=== PATIENT | female | born 1995 | race Hispanic/Latino ===

== ENCOUNTER 2022-08-03 10:31 | Emergency (ER) | payer OTHER ==
[~2022-08-03] VITALS: Ht 167.6 cm; Wt 72.5 kg
[2022-08-03 12:19] VITALS: BP 141/78
== END 2022-08-03 12:28 | disposition home or self-care (01) ==
LOC: ED 10:31
DX: S92.354A Nondisplaced fracture of fifth metatarsal bone, right foot, initial encounter for closed fracture (principal); W18.49XA Other slipping, tripping and stumbling without falling, initial encounter; Y92.481 Parking lot as the place of occurrence of the external cause

== ENCOUNTER 2022-12-01 07:04 | Emergency (ER) | payer OTHER ==
[~2022-12-01] VITALS: Ht 167.6 cm; Wt 79.0 kg
[2022-12-01 07:21] VITALS: BP 107/62
[2022-12-01 08:00] VITALS: BP 110/72
[2022-12-01 08:30] VITALS: BP 113/68
[2022-12-01 09:00] VITALS: BP 105/66
[2022-12-01 09:28] VITALS: BP 108/73
[2022-12-01 09:30] VITALS: BP 108/71; BP 108/73
== END 2022-12-01 09:52 | disposition home or self-care (01) ==
LOC: ED 07:04
DX: B34.9 Viral infection, unspecified (principal); F17.290 Nicotine dependence, other tobacco product, uncomplicated; Z20.822 Contact with and (suspected) exposure to COVID-19

== ENCOUNTER 2023-01-14 07:26 | Emergency (ER) | payer OTHER ==
[~2023-01-14] VITALS: Ht 167.6 cm; Wt 74.8 kg
[2023-01-14 07:42] VITALS: BP 116/74
[2023-01-14] MEDS ORDERED: DEBROX6.5 % OT (07:53)
[2023-01-14] MEDS ORDERED: AMOX/K CLAV875 M1 PO (07:53)
[2023-01-14] MEDS ORDERED: FLONASE AL50 MCG/ACT (07:53)
[2023-01-14 08:01] VITALS: BP 125/88
[2023-01-14 08:02] VITALS: BP 125/88
== END 2023-01-14 08:08 | disposition home or self-care (01) ==
LOC: ED 07:26
DX: H61.23 Impacted cerumen, bilateral (principal); H66.91 Otitis media, unspecified, right ear; F17.290 Nicotine dependence, other tobacco product, uncomplicated